=== PATIENT | female | born 1965 | race Caucasian/White ===

== ENCOUNTER 2018-12-28 00:11 | Inpatient (IN) | payer BC, SELFPAY ==
[2018-12-28] VITALS (95 sets, daily range): BP systolic 62–139; BP diastolic 26–86; PULSE 65–264; RESP 11–62; TEMP 36.6–37.5; O2SAT 89–100
[2018-12-28] MEDS: Adenosine 6 MG/2 ML VIAL (00:30)
[2018-12-28] MEDS: dilTIAZem 25 MG/5 ML VIAL 20 MG IVP (00:35)
[2018-12-28] MEDS: dilTIAZem 125 MG in Normal Saline 100 ML IV (00:40)
[2018-12-28 00:58] LABS: Abs Immature Grans 0.01 k/cumm (0.0-0.09); Absolute Basophil Count 0.03 k/cumm (0.0-0.2); Absolute Eosinophil Count 0.24 k/cumm (0.0-0.7); Absolute Lymphocyte Count 4.69 k/cumm (1.2-3.4); Absolute Monocyte Count 0.84 k/cumm (0.11-0.7); Basophils % 0.3; Eosinophils % 2.5; HCT 42.6 % (36.0-46.0); HGB 14.3 g/dL (12.0-15.5); Immature Grans % 0.1; Lymphocytes % 49.3; Mean Corp. HGB Concentration 33.6 g/dL (32.0-36.0); Mean Corpuscular Hemoglobin 30.2 pg (27.0-33.0); Mean Corpuscular Volume 89.9 fL (80-95); Monocytes % 8.8; Platelet Count 250 x1000/uL (130-400); RBC 4.74 m/cumm (4.00-5.20); RBC Distribution Width 13.9 % (11.7-14.6); White Blood Cell Count 9.51 k/cumm (4.4-10.8)
--- NOTE | 2018-12-28 01:04 | ED.GENADUL_ITS ---
Discharge Plan Disposition Patient Disposition: [facility] INPATIENT Condition: Serious Discharge Details Chief Complaint: Chest Pain Clinical Impression: Atrial fibrillation with RVR Admit Date/Time: 12/28/18 04:00 Admit Provider: Jake Nowak Attending Provider: Jake Nowak Primary Care Provider: Dante Kramer ED Provider: Jens Iglesias Discharge Data Discharge Date/Time-TO BE ENTERED AT DEPARTURE: 12/28/18 04:45 Medical Decision Making Patient arrives in a rapid narrow complex tachycardia. Difficult to say whether SVT or A. fib although there appeared to be some irregularity to it. IV was established and a dose of adenosine given. Rate slowed enough to clearly see irregular narrow complex rhythm consistent with atrial fibrillation. Patient then given 20 mg Cardizem bolus and started on a drip at 5 mg/h. She has never had atrial fibrillation before. Laboratory studies sent. Head CT ordered because of complaint of headache and possibility of anticoagulation. CTA of the chest ordered to evaluate for possible PE as she has some complaint of chest pain and shortness of breath. TSH sent as she is on Synthroid for hypothyroidism. Laboratory studies show normal white count and hemoglobin. Chemistries unremarkable. Potassium a little low at 3.3. Carbon dioxide 20.5. Troponin negative. TSH normal. Patient's blood pressure went down with a Cardizem. Heart rate did not really slow. She received almost 2 L of saline with no real response. We were able to increase Cardizem to 7.5 mg/h. However blood pressure dropped again. Heart rate continued to be elevated. We therefore discontinued the Cardizem. Blood pressure came up and she was given Lopressor IV. Heart rate has come down. Blood pressure going down a little so holding off on the second dose. May consider giving digoxin. CT head negative. CTA of chest negative. Patient to be admitted to the ICU for further management of new onset A. fib by hospitalist, Dr. Nowak. Lab Data Lab results reviewed: Yes I reviewed the patient's lab results. ECG Data Attestation: I personally reviewed and interpreted this ECG (s) as follows: Prior ECG tracings: available for review Interpretation: Narrow complex rapid tachycardia with nonspecific ST changes. HPI General Mode of arrival: wheelchair . Date/Time Provider Initiated Documentation: 12/28/18 00:28 . Limitations to Documentation: no limitations . Information obtained by: patient . HPI Narrative: Patient presents to ED with complaint of headache, lightheadedness, palpitations, chest pain. Patient reports that she was sleeping on the couch. She woke up to get ready for bed. She had a headache and eventually developed the other symptoms. She has a diagnosis of trigeminal neuralgia but states headache seems different. She has never had chest pain or palpitations before. She did not pass out. She was concerned and came here for evaluation. She is very anxious. She denies leg pain or leg swelling. Chest pain is described as pressure anteriorly. She does not really feel overly short of breath. She has no new neurologic complaints other than the headache. Related Data Home Medications Medication Instructions Recorded Confirmed alprazolam [Xanax] 0.5 mg PO PRN PRN 12/28/18 12/28/18 gabapentin 600 mg PO BID 12/28/18 12/28/18 levothyroxine [Synthroid] 50 mcg PO DAILY AM 12/28/18 12/28/18 pantoprazole 40 mg PO HS 12/28/18 12/28/18 Allergies Allergy/AdvReac Type Severity Reaction Status Date / Time ciprofloxacin [From Cipro] Allergy Unverified 12/28/18 00:19 clindamycin Allergy Unverified 12/28/18 00:19 Sulfa (Sulfonamide Allergy Unverified 12/28/18 00:19 Antibiotics) iodine AdvReac Unverified 12/28/18 00:19 General Stated Complaint: Chest Pain GALO: 2 Review of Systems Review of Systems 01/29 Review of Systems completed and is negative except as stated above in HPI (Systems reviewed: Const, Eyes, ENT, Resp, CV, GI, , MSK, Skin, Neuro) [facility] Medical History Anxiety (Chronic) GERD (gastroesophageal reflux disease) (Chronic) Hypothyroid (Chronic) Trigeminal neuralgia (Acute) Social History Smoking/Tobacco Use Status: Never Alcohol Intake: never Drug use: Never Substance use type: does not use Do you feel safe at home: Yes Do you feel safe in your relationship?: Yes Exam Narrative Exam Narrative: Vitals: Afebrile with rapid HR at 200. BP okay. Const: Obese female in NAD, anxious. HEENT: NC/AT. Normal facial exam. Eyes: Normal conjunctiva and sclera. Neck: Supple. Trachea midline. Lungs: Normal respiratory effort. Lungs are clear. Cor: Irregular and fast without murmur/gallop. Good radial pulses. GI: Soft. NT/ND. No guarding or rebound. Neuro: A+O x 3. CN II - XII grossly in tact. Normal strength, speech, mentation, sensation. Ext: No C/C/E. No calf tenderness. Skin: Warm and dry without rash. Course Vital Signs Pulse 190 H 12/28/18 00:12 Respiratory Rate 22 12/28/18 00:12 Pulse Oximetry 99 12/28/18 00:12 Temperature Source Skin 12/28/18 00:12 Pulse 190 H 12/28/18 00:35 Pulse 159 H 12/28/18 00:40 Respiratory Rate 14 12/28/18 00:40 Blood Pressure 99/69 L 12/28/18 00:35 Blood Pressure Mean 75 12/28/18 00:31 Pulse Oximetry 100 12/28/18 00:40 Oxygen Delivery Method Room Air 12/28/18 00:12 Oxygen Flow Rate 0 12/28/18 00:12 Lab/Test Results Lab/Test Results: Laboratory Tests Range/Units 12/28/18 12/28/18 00:25 00:46 WBC (4.4-10.8) k/cumm 9.51 RBC (4.00-5.20) m/cumm 4.74 Hgb (12.0-15.5) g/dL 14.3 Hct (36.0-46.0) % 42.6 MCV (80-95) fL 89.9 MCH (27.0-33.0) pg 30.2 MCHC (32.0-36.0) g/dL 33.6 RDW (11.7-14.6) % 13.9 Plt Count (130-400) x1000/uL 250 MPV (8.0-11.0) fL 12.0 H Immature Gran % 0.1 Neutrophils % 39.0 Lymphocytes % 49.3 Monocytes % 8.8 Eosinophils % 2.5 Basophils % 0.3 Absolute Neutrophils (1.2-6.7) k/cumm 3.70 Absolute Lymphocytes (1.2-3.4) k/cumm 4.69 H Absolute Monocytes (0.11-0.7) k/cumm 0.84 H Absolute Eosinophils (0.0-0.7) k/cumm 0.24 Absolute Basophils (0.0-0.2) k/cumm 0.03 PT Cancelled INR Cancelled Critical Care Time Critical Care Time: Yes Total Critical Care Time: 60 Attestation: Upon my evaluation, this patient had a high probability of imminent or life- threatening deterioration, which required my direct attention, intervention, and personal management. I have personally provided minutes of critical care time exclusive of time spent on separately billable procedures. Time includes review of laboratory data, radiology results, discussion with consultants, and monitoring for potential decompensation. Interventions were performed as documented above.
[2018-12-28 01:14] LABS: PTT Activated 24.7 sec (21.0-31.4); Prothrombin Time 10.3 sec (9.3-11.0)
[2018-12-28] MEDS: Normal Saline 250 ML 500 ML IV ×2 (01:15→01:55)
[2018-12-28 01:20] LABS: ALT 26 U/L (14-59); AST 24 U/L (15-37); Albumin 3.6 g/dL (3.4-5.0); Alkaline Phosphatase 66 U/L (46-116); Anion Gap 16.4 mmol/L (3-11); BUN 19 mg/dL (7-18); Bilirubin, Total 0.5 mg/dL (0.2-1.0); CO2 20.6 mmol/L (21.0-32.0); CREATININE 1.17 mg/dL (0.55-1.02); Calcium 9.1 mg/dL (8.5-10.1); Chloride 102 mmol/L (98-107); Estimated GFR 48.57 (mL/min/1.73m2); Glucose 174 mg/dL (70-100); Magnesium 1.9 mg/dL (1.8-2.4); Potassium 3.3 mmol/L (3.5-5.1); Sodium 139 mmol/L (136-145); TSH (W/Ref FT4) 2.44 uIU/mL (0.36-3.74); Total Protein 7.6 g/dL (6.4-8.2); Troponin I < 0.05 ng/mL (0.00-0.06)
[2018-12-28] MEDS: diphenhydrAMINE 50 MG/ML VIAL 25 MG IVP (02:16)
[2018-12-28] MEDS: Normal Saline 1,000 ML 1000 ML IV (02:35)
--- NOTE | 2018-12-28 02:36 | DI.CT_ITS ---
SYMPTOM/DIAGNOSIS: HEADACHE CRANIAL CT (WITHOUT CONTRAST): 12/[address] was performed. The ventricular system is normal in appearance. There is no evidence of an intracranial mass lesion. There is no evidence of a subdural or epidural hematoma. No focal areas of decreased attenuation are seen. CONCLUSION: Normal noncontrast Cranial CT.
--- NOTE | 2018-12-28 02:48 | DI.CT_ITS ---
SYMPTOM/DIAGNOSIS: CHEST PAIN, NEW ONSET A FIB CT ANGIOGRAPHY CHEST: 12/28 CT angiography was performed with multi slice acquisition and multi planar and 3D reconstruction. CT angiography of the chest was performed with bolus infusion of 100 cc Omnipaque 350. Thyroid is markedly enlarged and heterogeneous consistent with multinodular goiter. Images obtained through the upper abdomen show unremarkable appearance of visualized portions of liver, spleen, adrenals, pancreas and kidneys. No mediastinal or hilar adenopathy. Tracheobronchial tree appears intact. No pleural effusion or pleural based mass. Lungs appear clear. Thoracic aorta is of normal diameter and there is no evidence of dissection. Upper abdominal aortic branches appear normal. No evidence of pulmonary embolic disease. CONCLUSION: No evidence of pulmonary embolic disease. Findings consistent with multinodular goiter.
[2018-12-28] MEDS: Omnipaque 350 MG/ML 100 ML BTL IJ (02:49)
--- NOTE | 2018-12-28 02:57 | DI.VRAD_ITS ---
EXAM: CT Angiography Chest With Contrast EXAM DATE/TIME: 12/28/2018 12:46 AM CLINICAL HISTORY: 53 years old, female; Chest pain; Type not specified; Additional info: Chest pain, new onset afib TECHNIQUE: Imaging protocol: Computed tomographic angiography of the chest with intravenous contrast. 3D rendering: MIP reconstructed images were created and reviewed. Radiation optimization: All CT scans at this facility use at least one of these dose optimization techniques: automated exposure control; mA and/or kV adjustment per patient size (includes targeted exams where dose is matched to clinical indication); or iterative reconstruction. Contrast material: [id number]; Contrast volume: 84 ml; Contrast route: IV LAC 18G; COMPARISON: No relevant prior studies available. FINDINGS: Pulmonary arteries: No pulmonary emboli. Aorta: No aortic aneurysm. No aortic dissection. Lungs: Unremarkable. No consolidation. No masses. Pleural space: Unremarkable. No pneumothorax. No pleural effusion. Heart: Unremarkable. No cardiomegaly. No pericardial effusion. Lymph nodes: Unremarkable. No enlarged lymph nodes. Bones/joints: Unremarkable. No acute fracture. Soft tissues: Multinodular thyroid gland with superior mediastinal extension which Prior cholecystectomy A small hiatal hernia is detected. IMPRESSION: No pulmonary emboli Dictated and Authenticated by: Vitor Sorto MD. Ordering:NISREEN Colindres MD
--- NOTE | 2018-12-28 02:57 | DI.VRAD_ITS ---
EXAM: CT Head Without Contrast EXAM DATE/TIME: 12/28/2018 1:04 AM CLINICAL HISTORY: 53 years old, female; Pain; Headache not specified; Additional info: Chest pain, new onset afib TECHNIQUE: Imaging protocol: Computed tomography of the head without contrast. Radiation optimization: All CT scans at this facility use at least one of these dose optimization techniques: automated exposure control; mA and/or kV adjustment per patient size (includes targeted exams where dose is matched to clinical indication); or iterative reconstruction. COMPARISON: No relevant prior studies available. FINDINGS: Brain: Mild volume loss.No hemorrhage. Unremarkable white matter. No mass effect. Ventricles: Normal. No ventriculomegaly. Bones/joints: Unremarkable. No acute fracture. Sinuses: Visualized sinuses are unremarkable. No fluid levels. Mastoid air cells: Visualized mastoid air cells are well aerated. Soft tissues: Unremarkable. IMPRESSION: No acute intracranial abnormality. Dictated and Authenticated by: Vitor Sorto MD. Ordering:NISREEN Colindres MD
--- NOTE | 2018-12-28 03:58 | W.PM.HP.N ---
Date of service: 12/28/18 Time of Service: 03:58 History of Present Illness Narrative: see my handwritten H&P for details. [facility] Medical History Anxiety (Chronic) GERD (gastroesophageal reflux disease) (Chronic) Hypothyroid (Chronic) Trigeminal neuralgia (Acute) Social History Smoking/Tobacco Use Status: Never Alcohol Intake: never Drug use: Never Substance use type: does not use Do you feel safe at home: Yes Do you feel safe in your relationship?: Yes Meds Home Medications Medication Instructions Recorded Confirmed Type alprazolam [Xanax] 0.5 mg PO PRN PRN 12/28/18 12/28/18 History gabapentin 600 mg PO BID 12/28/18 12/28/18 History levothyroxine [Synthroid] 50 mcg PO DAILY AM 12/28/18 12/28/18 History pantoprazole 40 mg PO HS 12/28/18 12/28/18 History Allergies Allergy/AdvReac Type Severity Reaction Status Date / Time ciprofloxacin [From Cipro] Allergy Unverified 12/28/18 00:19 clindamycin Allergy Unverified 12/28/18 00:19 Sulfa (Sulfonamide Allergy Unverified 12/28/18 00:19 Antibiotics) iodine AdvReac Unverified 12/28/18 00:19 Exam Narrative Exam Narrative: see my handwritten H&P for details Results Labs : 12/28/18 00:25 12/28/18 00:25 Laboratory Results - last 24 hr 12/28/18 12/28/18 12/28/18 00:25 00:25 00:25 WBC 9.51 RBC 4.74 Hgb 14.3 Hct 42.6 MCV 89.9 MCH 30.2 MCHC 33.6 RDW 13.9 Plt Count 250 MPV 12.0 H Immature Gran % 0.1 Neutrophils % 39.0 Lymphocytes % 49.3 Monocytes % 8.8 Eosinophils % 2.5 Basophils % 0.3 Absolute Neutrophils 3.70 Absolute Lymphocytes 4.69 H Absolute Monocytes 0.84 H Absolute Eosinophils 0.24 Absolute Basophils 0.03 PT 10.3 INR 1.0 APTT 24.7 Sodium 139 Potassium 3.3 L Chloride 102 Carbon Dioxide 20.6 L Anion Gap 16.4 H BUN 19 H Creatinine 1.17 H Estimated GFR/1.73 m2 48.57 Glucose 174 H Calcium 9.1 Magnesium 1.9 Total Bilirubin 0.5 AST 24 ALT 26 Alkaline Phosphatase 66 Troponin I < 0.05 Total Protein 7.6 Albumin 3.6 TSH 12/28/18 12/28/18 00:25 00:46 WBC RBC Hgb Hct MCV MCH MCHC RDW Plt Count MPV Immature Gran % Neutrophils % Lymphocytes % Monocytes % Eosinophils % Basophils % Absolute Neutrophils Absolute Lymphocytes Absolute Monocytes Absolute Eosinophils Absolute Basophils PT Cancelled INR Cancelled APTT Sodium Potassium Chloride Carbon Dioxide Anion Gap BUN Creatinine Estimated GFR/1.73 m2 Glucose Calcium Magnesium Total Bilirubin AST ALT Alkaline Phosphatase Troponin I Total Protein Albumin TSH 2.44 Last Vital Signs Pulse 79 12/28/18 01:51 Resp 20 12/28/18 01:51 BP 113/74 12/28/18 01:51 Pulse Ox 97 12/28/18 01:51
[2018-12-28] MEDS: Digoxin 0.5 MG/2 ML AMP 0.25 MG IVP (05:14)
[2018-12-28] MEDS: Metoprolol 5 MG/5 ML VIAL (05:45)
--- NOTE | 2018-12-28 07:37 | NUR.NOTE ---
12/28/18 0210-see vital sign flow sheet-cardizem drip IV @ 5ml/hr continued infusing as ordered. Pt escorted to CT on monitor by director underwriter sales. 12/28/18 022-see vital sign flow sheet-cardizem drip increased to 7ml/hr without incident. 12/28/18 023-see vital sign flow sheet-cardizem drip stopped, EDMD notified and NS 1 liter began infusing as ordered. No new c/o voiced or noted. 12/28/18 030-see vital sign flow sheet-cardizem drip restarted at 5ml/hr as ordered. pt returned to ED room from CT, no new c/c voiced. 12/28/18 032-see vital sign flow sheet-EDMD notified of hypotension with orders to stop cardizem drip, which is stopped at this time, and instructed to admin lopressor 5mg x3 doses if SBP >120. first dose lopressor admin at this time as ordered. 12/28/18 0340-see vital sign flow sheet-lopressor dose #2 held due to hypotension, EDMD notified with instructions to monitor and admin per SBP 12/28/18 0350-see vital sign flow sheet-continue to hold 2nd lopressor dose EDMD advised with no new orders. 12/28/18 0405-Report given to Kamryn, CARD CUTTER, continue to hold 2nd lopressor dose due to hypotension-see vital sign flow sheet- 12/28/18 0440-see vital sign flow sheet-Dr Nowak is bedside and aware of BP of 62/47 and instructed director underwriter sales to begin infusing 1 liter NS bolus, transport pt to ICU ian and heart rate will be addressed in the ICU on arrival. 1 liter NS bolus began infusing wide open, CERTIFIED ATHLETIC TRAINER notified by director underwriter sales and pt transported on monitor by RN. pt with no new c/c voiced at this time. Nursing Note:
[2018-12-28] MEDS: dilTIAZem 60 MG TAB PO ×3 (08:30→19:42)
[2018-12-28] MEDS: Levothyroxine 50 MCG TAB PO (09:16)
--- NOTE | 2018-12-28 09:28 | NUR.NOTE ---
I spoke with the patient regarding the code status and she wants to be a full code and have everything done for her. She just noted that she does not want to be on a vent for a long time. I talked with her about speaking with the doctor about her code status but she states that she is comfortable with her decision and she wants to speak with care managers on advanced directives to specify vent length. Chad GRACIAN primary RN updated on this info. Nursing Note:
--- NOTE | 2018-12-28 09:42 | INITIAL_ITS ---
- If Service Date Differs Date of service: 12/28/18 Time of Service: 09:42 Care Management Initial Assess REASON FOR HOSPITALIZATION:: Atrial fibrillation PAST MEDICAL HISTORY/PAST SURGICAL HISTORY:: Medical History: Anxiety (Chronic). GERD (gastroesophageal reflux disease) (Chronic). Hypothyroid (Chronic). Trigeminal neuralgia (Acute) PREVIOUS FUNCTIONAL STATUS/SOCIAL/FAMILY SUPPORTS:: Trinity lives in a basement apartment in a single family home with friends of hers. She moved here from [place] about 2 years ago when she got layed off from her job. 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 Trinity has 2 sisters who live in [place]; her mother lives in [place].Trinity is independent with ADLs and all care and activities. CURRENT FUNCTIONAL STATUS:: Trinity was sitting up in bed when CM came to see her. She was pleasant and cooperatine and readily engaged in conversation. Trinity had a lot of questions about insurance coverage, payment options, advanced directives and available resources. CM reviewed the Patient Financial Assistance program with her and provided her with copies of the [facility] Advanced Directives forms, the [facility] Patient Financial Assistance packet and the [facility] portal brochure. ADVANCE DIRECTIVES:: Trinity does not currently have advanced directives but was given a copy of the [facility] forms by CM at her request. Has patient been provided with information about the portal?: Yes Did the patient sign up for the portal?: No CODE STATUS:: Full Code INSURANCE COVERAGE / FINANCIAL ISSUES:: BC BS CURRENT HOME/COMMUNITY SERVICES/EQUIPMENT:: none currently PRIMARY CARE PHYSICIAN:: Dante Kramer MD, [place] POTENTIAL DISCHARGE NEEDS:: Follow up with Cardiology, PCP and discharge plan of care PATIENT/FAMILY EDUCATION NEEDS:: Discharge plan, limitations, folllow up care, Ask Me Three. TRANSPORTATION:: via private vehicle with family when ready PLAN:: Trinity is undergoing testing related to new onset afib. She willl be discharged home with no services. She will follow up with cardiology and her PCP. Cm will continue to provide support to patient, family and discharge planning needs.
[2018-12-28 09:45] LABS: HCT 44.8 % (36.0-46.0); HGB 14.8 g/dL (12.0-15.5); Mean Corpuscular Hemoglobin 29.8 pg (27.0-33.0); Mean Corpuscular Volume 90.3 fL (80-95); Mean Platelet Volume 11.4 fL (8.0-11.0); Platelet Count 254 x1000/uL (130-400); RBC 4.96 m/cumm (4.00-5.20); RBC Distribution Width 14.3 % (11.7-14.6); White Blood Cell Count 6.88 k/cumm (4.4-10.8)
[2018-12-28] MEDS: Aspirin 325 MG TAB PO (09:55)
[2018-12-28] MEDS: Gabapentin 300 MG CAP PO ×2 (10:04→19:42)
[2018-12-28] MEDS: Normal Saline 1,000 ML 100 ML IV (10:10)
[2018-12-28 10:24] LABS: Anion Gap 11.7 mmol/L (3-11); BUN 13 mg/dL (7-18); CO2 23.3 mmol/L (21.0-32.0); CREATININE 0.71 mg/dL (0.55-1.02); Calcium 8.2 mg/dL (8.5-10.1); Chloride 110 mmol/L (98-107); Glucose 81 mg/dL (70-100); Potassium 4.3 mmol/L (3.5-5.1); Sodium 145 mmol/L (136-145)
[2018-12-28] MEDS: Acyclovir 400 MG TAB PO ×3 (10:31→19:42)
--- NOTE | 2018-12-28 10:45 | W.PM.PROGNOT ---
Date of Service Date of service: 12/28/18 Time of Service: 12:34 Subjective Subjective Interval history since last seen: patient admitted with wisam jolly with RVR. She converted to NSR and has been weaned of diltiazem drip. She is on oral dilt. CHADSVASC is 1. She will be placed on daily aspirin. She had hypothyroidism on synthroid, with normal TSH, free t4 just above normal which is likely insignificant and free t3 pending. She has an echo pending as well. On discharged a 30 day even monitor could be considered. Objective Objective Clinical Data: Abnormal lab results 12/28/18 12/28/18 12/28/18 Range/Units 00:25 00:25 09:32 MPV 12.0 H (8.0-11.0) fL Absolute Lymphocytes 4.69 H (1.2-3.4) k/cumm Absolute Monocytes 0.84 H (0.11-0.7) k/cumm Potassium 3.3 L (3.5-5.1) mmol/L Chloride 110 H (98-107) mmol/L Carbon Dioxide 20.6 L (21.0-32.0) mmol/L Anion Gap 16.4 H 11.7 H (3-11) mmol/L BUN 19 H (7-18) mg/dL Creatinine 1.17 H (0.55-1.02) mg/dL Glucose 174 H (70-100) mg/dL Calcium 8.2 L (8.5-10.1) mg/dL Troponin I 0.30 H* (0.00-0.06) ng/mL Free T4 1.50 H (0.76-1.46) ng/dL 12/28/18 Range/Units 09:32 MPV 11.4 H (8.0-11.0) fL Absolute Lymphocytes (1.2-3.4) k/cumm Absolute Monocytes (0.11-0.7) k/cumm Potassium (3.5-5.1) mmol/L Chloride (98-107) mmol/L Carbon Dioxide (21.0-32.0) mmol/L Anion Gap (3-11) mmol/L BUN (7-18) mg/dL Creatinine (0.55-1.02) mg/dL Glucose (70-100) mg/dL Calcium (8.5-10.1) mg/dL Troponin I (0.00-0.06) ng/mL Free T4 (0.76-1.46) ng/dL Vital Signs Temperature 36.9 C 12/28/18 08:40 Temperature Source Temporal Artery Scan 12/28/18 08:40 Pulse 75 12/28/18 09:52 Pulse 78 12/28/18 09:52 Respiratory Rate 20 12/28/18 09:52 Respiratory Effort Non-Labored 12/28/18 08:40 Respiratory Depth Normal 12/28/18 08:40 Respiratory Pattern Normal 12/28/18 08:40 Blood Pressure 109/62 12/28/18 09:52 Blood Pressure Mean 71 12/28/18 09:52 Blood Pressure Position Supine 12/28/18 08:40 Pulse Oximetry 98 12/28/18 08:40 Oxygen Delivery Method Room Air 12/28/18 08:40 Oxygen Flow Rate 0 12/28/18 08:40 Pain Level 2 12/28/18 08:40 Comment 12/28/18 07:35 Intake & Output 12/27/18 12/27/18 12/28/18 11:59 23:59 11:59 Intake Total 1808.75 / 1808.75 Output Total 350 / 350 Balance 1458.75 / 1458.75 Weight 113.7 kg Intake: IV 1808.75 / 1808.75 Output: Urine 350 / 350 Other: Urine Color Yellow Straw Urine Appearance Clear Urine Odor Strong Comment Voided 350cc clear yellow urine. Voiding Methods Bedside Commode Laboratory Results WBC 6.88 k/cumm (4.4-10.8) 12/28/18 09:32 RBC 4.96 m/cumm (4.00-5.20) 12/28/18 09:32 Hgb 14.8 g/dL (12.0-15.5) 12/28/18 09:32 Hct 44.8 % (36.0-46.0) 12/28/18 09:32 MCV 90.3 fL (80-95) 12/28/18 09:32 MCH 29.8 pg (27.0-33.0) 12/28/18 09:32 MCHC 33.0 g/dL (32.0-36.0) 12/28/18 09:32 RDW 14.3 % (11.7-14.6) 12/28/18 09:32 Plt Count 254 x1000/uL (130-400) 12/28/18 09:32 MPV 11.4 fL (8.0-11.0) H 12/28/18 09:32 Immature Gran % 0.1 12/28/18 00:25 Neutrophils % 39.0 12/28/18 00:25 Lymphocytes % 49.3 12/28/18 00:25 Monocytes % 8.8 12/28/18 00:25 Eosinophils % 2.5 12/28/18 00:25 Basophils % 0.3 12/28/18 00:25 Absolute Neutrophils 3.70 k/cumm (1.2-6.7) 12/28/18 00:25 Absolute Lymphocytes 4.69 k/cumm (1.2-3.4) H 12/28/18 00:25 Absolute Monocytes 0.84 k/cumm (0.11-0.7) H 12/28/18 00:25 Absolute Eosinophils 0.24 k/cumm (0.0-0.7) 12/28/18 00:25 Absolute Basophils 0.03 k/cumm (0.0-0.2) 12/28/18 00:25 PT Cancelled 12/28/18 00:46 INR Cancelled 12/28/18 00:46 APTT 24.7 sec (21.0-31.4) 12/28/18 00:25 Sodium 145 mmol/L (136-145) 12/28/18 09:32 Potassium 4.3 mmol/L (3.5-5.1) D 12/28/18 09:32 Chloride 110 mmol/L (98-107) H 12/28/18 09:32 Carbon Dioxide 23.3 mmol/L (21.0-32.0) 12/28/18 09:32 Anion Gap 11.7 mmol/L (3-11) H 12/28/18 09:32 BUN 13 mg/dL (7-18) D 12/28/18 09:32 Creatinine 0.71 mg/dL (0.55-1.02) 12/28/18 09:32 Estimated GFR/1.73 m2 >= 60.00 (mL/min/1.73m2) 12/28/18 09:32 Glucose 81 mg/dL (70-100) D 12/28/18 09:32 Calcium 8.2 mg/dL (8.5-10.1) L 12/28/18 09:32 Magnesium 1.9 mg/dL (1.8-2.4) 12/28/18 00:25 Total Bilirubin 0.5 mg/dL (0.2-1.0) 12/28/18 00:25 AST 24 U/L (15-37) 12/28/18 00:25 ALT 26 U/L (14-59) 12/28/18 00:25 Alkaline Phosphatase 66 U/L (46-116) 12/28/18 00:25 Troponin I 0.30 ng/mL (0.00-0.06) H* 12/28/18 09:32 Total Protein 7.6 g/dL (6.4-8.2) 12/28/18 00:25 Albumin 3.6 g/dL (3.4-5.0) 12/28/18 00:25 TSH 2.44 uIU/mL (0.36-3.74) 12/28/18 00:25 Free T4 1.50 ng/dL (0.76-1.46) H 12/28/18 09:32 Free T4 Cancelled 12/28/18 09:32
--- NOTE | 2018-12-28 12:20 | MERGE_ITS ---
*[facility]* *[facility]* [address] [place] [address] Date of study: 12/28/2018 Transthoracic Echocardiography M-mode, complete 2D, complete spectral Doppler, and color Doppler *STUDY CONCLUSIONS* Summary: 1. Left ventricle: The cavity size was normal. Wall thickness was normal. Systolic function was normal. The estimated ejection fraction was 55-60%. Wall motion was normal; there were no regional wall motion abnormalities. 2. Mitral valve: There was mild regurgitation. 3. Left atrium: The atrium was mildly dilated. 4. Right ventricle: The cavity size was mildly dilated. Wall thickness was normal. Systolic function was normal. 5. Right atrium: The atrium was mildly dilated. 6. Tricuspid valve: There was mild-moderate regurgitation. 7. Pulmonary arteries: Pulmonary systolic pressure was increased, in the range of 35mm Hg to 40mm Hg. *PATIENT PRESENTATION* Height: 162.6cm (64in ) S/D Pressure: 109 / 62 Weight: 113.4kg (249.5lb ) BSA: 2.32m^2 Test start time: 12:35 PM. Test stop time: 01:35 PM. PERFORMING Unknown PERFORMING Nv CONSULTING Wu Nowak ORDERING Wu Nowak REFERRING Wu Nowak FIXER BOARDING ROOM RT Suad (R)(CHANTE), JUANITA *PROCEDURE DATA* Procedure information: The patient was identified by two identifiers. This study was interpreted by [facility]. Pertinent images and digital data are archived for permanent storage and are available for subsequent review. No prior study was available for comparison. Study status: Routine. Transthoracic echocardiography. M-mode, complete 2D, complete spectral Doppler, and color Doppler. A Transthoracic Echocardiogram was performed. Scanning was performed from the parasternal, apical, subcostal, and suprasternal notch acoustic windows. Images were obtained using an [id number] cardiac ultrasound machine. Image quality was adequate. Study completion: The patient tolerated the procedure well. There were no complications. History: PMH: Afib. Calculate LV function. *CARDIAC ANATOMY* Left ventricle: The cavity size was normal. Wall thickness was normal. Systolic function was normal. The estimated ejection fraction was 55-60%. Wall motion was normal; there were no regional wall motion abnormalities. Diastolic parameters were not diagnostic. Aortic valve: Probably trileaflet; normal thickness leaflets. Mobility was not restricted. Doppler: Transvalvular velocity was within the normal range. There was no stenosis. There was no significant regurgitation. VTI ratio of LVOT to aortic valve: 0.89. Valve area (VTI): 2.9cm^2. Indexed valve area (VTI): 1.2cm^2/m^2. Peak velocity ratio of LVOT to aortic valve: 0.86. Valve area (Vmax): 2.8cm^2. Indexed valve area (Vmax): 1.2cm^2/m^2. Mean velocity ratio of LVOT to aortic valve: 0.87. Valve area (Vmean): 2.8cm^2. Indexed valve area (Vmean): 1.2cm^2/m^2. Mean gradient (S): 6mm Hg. Peak gradient (S): 12.4mm Hg. Aorta: Aortic root: The aortic root was normal in size. Ascending aorta: The ascending aorta was normal in size. Mitral valve: Mildly thickened leaflets. Mobility was not restricted. Doppler: Transvalvular velocity was within the normal range. There was no evidence for stenosis. There was mild regurgitation. Valve area by pressure half-time: 4.7cm^2. Indexed valve area by pressure half-time: 2cm^2/m^2. Peak gradient (D): 4.7mm Hg. Left atrium: The atrium was mildly dilated. Right ventricle: The cavity size was mildly dilated. Wall thickness was normal. Systolic function was normal. Pulmonic valve: The pulmonary valve appears to be grossly normal. Doppler: Transvalvular velocity was within the normal range. There was no evidence for stenosis. There was no significant regurgitation. Tricuspid valve: Structurally normal valve. Doppler: Transvalvular velocity was within the normal range. There was no evidence for stenosis. There was mild-moderate regurgitation. Pulmonary artery: Pulmonary systolic pressure was increased, in the range of 35mm Hg to 40mm Hg. Right atrium: The atrium was mildly dilated. Pericardium: There was no pericardial effusion. Systemic veins: Inferior vena cava: Well visualized. The vessel was patent and normal in size. The respirophasic diameter changes were in the normal range (greater than or equal to 50%). Baseline ECG: Normal sinus rhythm. Measurements Left ventricle Value Reference LV ID, ED, PLAX 5.2 cm 3.5 - 6.0 LV ID, ES, PLAX 3.5 cm 2.1 - 4.0 LV PW thickness, ED, PLAX 1.0 cm LV end-diastolic volume, 1-p A2C 85 ml LV ejection fraction, 1-p A2C 57 % LV end-diastolic volume, 1-p A4C 97 ml LV ejection fraction, 1-p A4C 58 % LV e', lateral 0.183 m/sec LV E/e', lateral 6 LV e', medial 0.121 m/sec LV E/e', medial 9 LV e', average 0.152 m/sec LV E/e', average 7 Ventricular septum Value Reference IVS thickness, ED, PLAX 0.8 cm LVOT Value Reference LVOT ID, A-P 2.0 cm LVOT area 3.3 cm^2 LVOT peak velocity, S 1.51 m/sec LVOT mean velocity, S 0.99 m/sec LVOT VTI, S 27.6 cm LVOT peak gradient, S 9.1 mm Hg LVOT mean gradient, S 4.6 mm Hg Stroke volume (SV), LVOT DP 90 ml Stroke index (SV/bsa), LVOT DP 39 ml/m^2 Aortic valve Value Reference Aortic valve peak velocity, S 1.8 m/sec Aortic valve mean velocity, S 1.1 m/sec Aortic valve VTI, S 31.0 cm Aortic mean gradient, S 6 mm Hg Aortic peak gradient, S 12.4 mm Hg VTI ratio, LVOT/AV 0.89 Aortic valve area, VTI 2.9 cm^2 Velocity ratio, peak, LVOT/AV 0.86 Aortic valve area, peak velocity 2.8 cm^2 Velocity ratio, mean, LVOT/AV 0.87 Aortic valve area, mean velocity 2.8 cm^2 Aortic valve area/bsa, mean velocity 1.2 cm^2/m^2 Aorta Value Reference Aortic root ID, ED 3.0 cm Ascending aorta ID, A-P, S 2.9 cm Left atrium Value Reference LA ID, A-P, ES 4.4 cm LA ID/bsa, A-P 1.9 cm/m^2 <=2.2 LA volume/bsa, ES, 1-p A4C 43 ml/m^2 LA volume, ES, 2-p 73 ml LA volume/bsa, ES, 2-p 31 ml/m^2 LA/aortic root ratio 1.45 Mitral valve Value Reference Mitral E-wave peak velocity 1.08 m/sec Mitral A-wave peak velocity 0.54 m/sec Mitral deceleration time 161 ms 150 - 230 Mitral pressure half-time 47 ms Mitral peak gradient, D 4.7 mm Hg Mitral E/A ratio, peak 2.02 Mitral valve area, PHT, DP 4.7 cm^2 Tricuspid valve Value Reference Tricuspid regurg peak velocity 3.1 m/sec Tricuspid peak RV-RA gradient 37.3 mm Hg Right atrium Value Reference RA area, ES, A4C (H) 21 cm^2 8.3 - 19.5 Legend: (L) and (H) sho values outside specified reference range. I have personally reviewed the images and have reviewed and edited the reported findings. Electronically signed by Gen Chi 12/28/2018 16:36
--- NOTE | 2018-12-28 12:29 | PHARADMIT ---
Admission Pharmacy Clinical Review AFIB Code Status Full Code Current Weight 113.7 kg Renally Cleared and Narrow Therapeutic Index Meds CrCl ~ 114 mg/dL based on ABW QTc Value / Action Taken QTc 410 BP Control, Fever BP 109/62, afebrile Electrolytes reviewed Na 145, K+ 4.3, Mg 1.9 DVT Prophylaxis Opiate Usage / Scheduled Bowel Regimen Ordered Plt/SCr for Heparin / Enoxaparin Plt 254, WBC 6.88 INR for Warfarin 1.0 H/H stable, WBC/Bands H/H 14.8/44.8 Antibiotic appropriateness Cultures and Sensitivities Surgical ABX d/c within 24 hr DM control / Insulin Dosing Heart Failure (Check EF%) (SEBASTIÁN's, B-Block, Diuretics) IV to PO Switch Dilt dripped stopped, switched to oral Home Meds Reviewed Yes Home Meds Not Ordered All ordered but eric is 1/2 of reported home med dose Comments Converted to NSR Troponin 0.3, Echo pending
[2018-12-28 14:37] LABS: Troponin I 0.24 ng/mL (0.00-0.06)
--- NOTE | 2018-12-28 15:15 | CHAPLAIN ---
Trinity was resting in bed when I visited. I followed Sonia from Dietary, a blood draw from lab staff and Trinity walking around the halls a bit with her nurse, so she was tired. Trinity told me about coming in last night with a fast heart rate and not knowing what was causing that. She lives in an apartment in the home of a friend and the friend's parents. The friend's father is a hospice patient. Trinity's family is in [place] (mom) and [place] (sisters). Her dad a few years ago and Trinity was able to help care for him before he . 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 She moved to [place] two years ago to live with these friends (also missionaries in [place]) while looking for other work.. The fast heart rate she experienced last night was scary for her,s she said, but she is feeling better today. She did not get much sleep last night and is hoping to be able to rest this evening and tonight without having more tests. Trinity attends [facility] [employer] but is not a member. She expects her friend and her friend's mom will be in to visit. I offered a prayer with Trinity and will visit again.
[2018-12-28 17:10] LABS: T3,Free 3.6 pg/ml (2.8-5.3)
[2018-12-28] MEDS: Pantoprazole 40 MG TABCR PO (23:04)
[2018-12-29] VITALS (10 sets, daily range): BP systolic 95–142; BP diastolic 46–91; PULSE 57–98; RESP 14–20; TEMP 36.6; O2SAT 97–99
[2018-12-29 07:12] LABS: HCT 38.8 % (36.0-46.0); HGB 12.7 g/dL (12.0-15.5); Mean Corp. HGB Concentration 32.7 g/dL (32.0-36.0); Mean Corpuscular Volume 91.5 fL (80-95); Mean Platelet Volume 11.4 fL (8.0-11.0); Platelet Count 219 x1000/uL (130-400); RBC 4.24 m/cumm (4.00-5.20); RBC Distribution Width 14.3 % (11.7-14.6); White Blood Cell Count 5.81 k/cumm (4.4-10.8)
[2018-12-29 07:52] LABS: Anion Gap 8.4 mmol/L (3-11); BUN 14 mg/dL (7-18); CO2 25.6 mmol/L (21.0-32.0); CREATININE 0.65 mg/dL (0.55-1.02); Calcium 8.4 mg/dL (8.5-10.1); Chloride 108 mmol/L (98-107); Glucose 91 mg/dL (70-100); Potassium 3.6 mmol/L (3.5-5.1); Sodium 142 mmol/L (136-145)
[2018-12-29] MEDS: dilTIAZem 60 MG TAB PO ×2 (09:00→13:59)
[2018-12-29] MEDS: Gabapentin 300 MG CAP PO (09:00)
[2018-12-29] MEDS: Aspirin 81 MG CHEW PO (09:00)
[2018-12-29] MEDS: Acyclovir 400 MG TAB PO ×2 (09:01→13:59)
[2018-12-29] MEDS: Potassium Chloride 20 MEQ TABCR 40 MEQ PO (10:30)
--- NOTE | 2018-12-29 11:26 | W.PM.DS.N ---
Date of service: 12/29/18 Time of Service: 11:26 DS: Diagnosis Discharge Diagnosis (1) Atrial fibrillation: Status: Chronic (2) Obesity: Status: Chronic Discharge Plan Disposition Patient Disposition: HOME Condition: Stable Discharge Details Chief Complaint: Chest Pain Clinical Impression: Atrial fibrillation with RVR Reason For Visit: AFIB Admit Date/Time: 12/28/18 04:00 Admit Provider: Jake Nowak Attending Provider: Jake Nowak Primary Care Provider: Dante Kramer ED Provider: Jens Iglesias [facility] Hospital Course: Chief Complaint: HPI: 53 year old woman with a history of Obesity and hypothyroidism, admitted from [facility] Emergency Department on 12/28 with a new diagnosis of Atrial Fibrillation with RVR. Ms. Damon has a history of Obesity, Hypothyroidism, GERD with verbal report of Padilla's Esophagus, Trigeminal Neuralgia, and anxiety. She presented to the ED with initial complaints of palpitations, chest discomfort, and lightheadedness. Evaluation was significant for evidence of a rapid and irregular rate, with diagnosis of new Afib at time of admission. She was mildly hypokalemic at presentation, with a mildly low bicarb and an anion gap, all of which quickly normalized. She also had a normal WBC, Normal CTA of the chest (Findings of a Multinodular Goiter), and normal TSH. Following admission she quickly converted to sinus rhythm while receiving Cardizem, and has remained in sinus rhythm since. Her ECHO was essentially normal with the exception of some degree of PHTN (PAP 35-40mm Hg), and she was initiated on oral Diltiazem. Given her [id number] score of 1 (Female) she was initiated on daily ASA as well. Will plan on Holter monitor as outpatient, and continuation of short acting oral cardizem until ultimate dose is finalized and she can be changed to once daily dosing. Of note, Ms. Damon's Troponin was minimally and equivocally elevated following admission (0.3 --> 0.24), and downtrended with treatment of her Afib and conversion to sinus rhythm. This very likely represents demand ischemia, but cannot rule out underlying Coronary Disease. She is asymptomatic currently - will attempt to arrange outpatient stress testing, and given her chronic knee pain will do so with a pharmacological nuclear stress test. Prior to discharge a lengthy discussion was held regarding healthy attempts at weight loss - appears that the patient has been mainly on a 'keto' diet for a month, and routinely fasts for 16 hours a day. Also with noted elevation in Pulmonary Pressures and obesity - may benefit from a sleep study as an outpatient to rule out underlying SANA. Will also recommend follow-up with PCP within 1 week of discharge. Home Meds and New Rx's Prescriptions: New acyclovir 400 mg Tablet 400 mg PO TID Qty: 0 RF: 0 aspirin 81 mg Tablet,Chewable 81 mg PO DAILY Qty: 0 RF: 0 diltiazem HCl [Cardizem] 60 mg Tablet 60 mg PO TID Qty: 90 RF: 0 Continued alprazolam [Xanax] 0.5 mg Tablet 0.5 mg PO PRN PRNRF: 0 levothyroxine [Synthroid] 50 mcg Tablet 50 mcg PO DAILY AM RF: 0 pantoprazole 40 mg Tablet,Delayed Release (Dr/Ec) 40 mg PO HS RF: 0 gabapentin 300 mg Capsule 600 mg PO BID RF: 0 Discharge Instructions Activity:: No strenuous activity Equipment/Supplies:: No Equipment Needed Diet:: Low Sodium Discharge Orders Discharge Orders: Discharge Order (Routine); Ordered 12/29/18 Ordered By: Christian Griffin Other Ambulatory Orders: Cardiac Event Recorder (Outpt) (ONCE) Location: None Selected Ordered By: Christian Griffin Nuclear Medicine Stress Test (Outpt) (ONCE) Timeframe: 20190112 Location: None Selected Ordered By: Christian Griffin DS: Summary Status at Discharge Functional status at discharge: independent ambulation Overall status at discharge: patient is back to baseline Mental Status: mental status grossly normal Speech and Movement: speech and movement normal Mood: congruent mood Affect: normal affect Exam Psych Mental Status: mental status grossly normal Speech and Movement: speech and movement normal Mood: congruent mood Affect: normal affect DS: Data Vitals/I&O Vitals and I&O: Vital Signs Temperature 36.6 C 12/29/18 09:45 Temperature Source Temporal Artery Scan 12/29/18 09:45 Pulse 98 H 12/29/18 09:45 Pulse 57 L 12/29/18 06:01 Respiratory Rate 16 12/29/18 09:45 Respiratory Effort 12/29/18 09:45 Respiratory Depth Normal 12/29/18 09:45 Respiratory Pattern Normal 12/29/18 03:00 Blood Pressure 142/91 H 12/29/18 09:45 Blood Pressure Mean 108 12/29/18 09:45 Blood Pressure Position Sitting 12/29/18 09:45 Pulse Oximetry 98 12/29/18 09:45 Oxygen Delivery Method Room Air 12/29/18 09:45 Oxygen Flow Rate 0 12/29/18 09:45 Pain Level 0 12/29/18 09:45 Comment 12/28/18 07:35 Intake & Output 12/28/18 12/28/18 12/29/18 11:59 23:59 11:59 Intake Total 1808.75 / 2698.75 890 / 2698.75 480 / 480 Output Total 350 / 2425 2075 / 2425 Balance 1458.75 / 273.75 -1185 / 273.75 480 / 480 Weight 113.7 kg 114.5 kg Intake: IV 1808.75 / 1808.75 Oral 890 / 890 480 / 480 Output: Urine 350 / 2425 2075 / 2425 Other: Urine Color Yellow Yellow Straw Urine Appearance Clear Clear Urine Odor Strong Normal Comment Voided 350cc clear yellow urine. Herpes sores along vaginal tract, currently being treated with Acyclovir. Stool Size Small Stool Characteristics Soft Formed Voiding Methods Bedside Commode Bedside Commode Data Completed and Pending Completed studies during hospitalization [Text1]: Exam(s) a US:US echocardiogram Date of study: 12/28/2018 Transthoracic Echocardiography M-mode, complete 2D, complete spectral Doppler, and color Doppler *STUDY CONCLUSIONS* Summary: 1. Left ventricle: The cavity size was normal. Wall thickness was normal. Systolic function was normal. The estimated ejection fraction was 55-60%. Wall motion was normal; there were no regional wall motion abnormalities. 2. Mitral valve: There was mild regurgitation. 3. Left atrium: The atrium was mildly dilated. 4. Right ventricle: The cavity size was mildly dilated. Wall thickness was normal. Systolic function was normal. 5. Right atrium: The atrium was mildly dilated. 6. Tricuspid valve: There was mild-moderate regurgitation. 7. Pulmonary arteries: Pulmonary systolic pressure was increased, in the range of 35mm Hg to 40mm Hg. Exam(s) 12/28/[address]:CT chest PE CTA SYMPTOM/DIAGNOSIS: CHEST PAIN, NEW ONSET A FIB CT ANGIOGRAPHY CHEST: 12/28 CT angiography was performed with multi slice acquisition and multi planar and 3D reconstruction. CT angiography of the chest was performed with bolus infusion of 100 cc Omnipaque 350. Thyroid is markedly enlarged and heterogeneous consistent with multinodular goiter. Images obtained through the upper abdomen show unremarkable appearance of visualized portions of liver, spleen, adrenals, pancreas and kidneys. No mediastinal or hilar adenopathy. Tracheobronchial tree appears intact. No pleural effusion or pleural based mass. Lungs appear clear. Thoracic aorta is of normal diameter and there is no evidence of dissection. Upper abdominal aortic branches appear normal. No evidence of pulmonary embolic disease. CONCLUSION: No evidence of pulmonary embolic disease. Findings consistent with multinodular goiter. Exam(s) 12/28/[address]:CT head wo SYMPTOM/DIAGNOSIS: HEADACHE CRANIAL CT (WITHOUT CONTRAST): 12/[address] was performed. The ventricular system is normal in appearance. There is no evidence of an intracranial mass lesion. There is no evidence of a subdural or epidural hematoma. No focal areas of decreased attenuation are seen. CONCLUSION: Normal noncontrast Cranial CT. Labs on day of discharge: Labs from last 24 hours 12/29/18 12/29/18 12/28/18 06:30 06:30 14:00 WBC 5.81 RBC 4.24 Hgb 12.7 D Hct 38.8 MCV 91.5 MCH 30.0 MCHC 32.7 RDW 14.3 Plt Count 219 MPV 11.4 H Sodium 142 Potassium 3.6 Chloride 108 H Carbon Dioxide 25.6 Anion Gap 8.4 BUN 14 Creatinine 0.65 Estimated GFR/1.73 m2 >= 60.00 Glucose 91 Calcium 8.4 L Troponin I 0.24 H* Free T3 pg/mL 12/28/18 09:32 WBC RBC Hgb Hct MCV MCH MCHC RDW Plt Count MPV Sodium Potassium Chloride Carbon Dioxide Anion Gap BUN Creatinine Estimated GFR/1.73 m2 Glucose Calcium Troponin I Free T3 pg/mL 3.6 [facility] Medical History Anxiety (Chronic) GERD (gastroesophageal reflux disease) (Chronic) Hypothyroid (Chronic) Trigeminal neuralgia (Acute) Social History Smoking/Tobacco Use Status: Never Alcohol Intake: never Drug use: Never Substance use type: does not use Do you feel safe at home: Yes Do you feel safe in your relationship?: Yes
--- NOTE | 2018-12-29 14:29 | CHAPLAIN ---
Trinity was getting ready to be discharged when I visited. She is grateful to be going home to a place where there are other people around in case a medical emergency arises. Trinity is connected to the [facility] and she planned to call the spiritism herself and ask members to pray for her.
--- NOTE | 2018-12-29 17:07 | PDOC.CMDIS ---
- If Service Date Differs Date of service: 12/29/18 Time of Service: 17:07 LACE Index Scoring Tool - Questions: Length of Stay (in days): 1 Acuity (Admit via E.D.?): Yes E.D. Visits: 1 - Answers: Total Score: 5 Risk of Readmission: Low Risk Care Management Discharge Reason for Hospitalization: Atrial fibrillation Discharge Plan: Trinity will be discharged home with no services. She will follow up with cardiology and her PCP and discharge plan of care. Trinity willl drive herself home via private vehicle. Patient/Family Education Needs: Discharge plan, limitations, follow up plan, Ask Me Three.
== END 2018-12-29 15:20 | disposition home or self-care (01) | DRG 309 ==
LOC: ER 02:11 → ICU 06:24
PROVIDERS: Internal Medicine; Admitting Provider Internal Medicine; Emergency Provider Emergency Medicine; PCP Family Medicine; Visit Provider Family Medicine
DX: I48.91 Unspecified atrial fibrillation (principal); I24.8 Other forms of acute ischemic heart disease; Z68.41 Body mass index [BMI] 40.0-44.9, adult; E66.9 Obesity, unspecified; E87.6 Hypokalemia; E03.9 Hypothyroidism, unspecified; E04.2 Nontoxic multinodular goiter; K21.9 Gastro-esophageal reflux disease without esophagitis; F41.9 Anxiety disorder, unspecified; G89.29 Other chronic pain; M25.561 Pain in right knee; G50.0 Trigeminal neuralgia
CPT/HCPCS: 36415; 71275; 80048; 80053; 85027; 93005; 96361; 96365; 96366; 96375; 96376; 99223; 99239; 99285; NC; 70450; 83735; 84439; 84443; 84481; 84484; 85025; 85610; 85730; 93010; 93225; 93306; 94762; J0153; J1160; J1200; J3490

== ENCOUNTER 2019-01-01 08:49 | Outpatient (CLI) | payer BC, SELFPAY ==
--- NOTE | 2019-01-01 11:20 | HOLTER_ITS ---
DATE OF DICTATION: January 01, 2019 STUDY INDICATION: Atrial fibrillation. REQUESTING PROVIDER: Not available. FINDINGS: The patient was monitored for 2 days. Baseline sinus rhythm. Average heart rate 74 bpm, range 56 to 153 bpm. Rare ectopy. One 5-beat ventricular run, 155 bpm. Two atrial runs, longest 3 beats, fastest 188 bpm. No pauses greater than 3 seconds. No high-degree heart block. Seven patient events. None of these events correlated with arrhythmias. FINAL INTERPRETATION: Minor ventricular and atrial arrhythmias, asymptomatic.
== END 2019-01-01 09:09 ==
PROVIDERS: PCP Family Medicine; Visit Provider Family Medicine
DX: I48.91 Unspecified atrial fibrillation (principal); I49.3 Ventricular premature depolarization; I49.1 Atrial premature depolarization
CPT/HCPCS: 93226

== ENCOUNTER 2019-01-05 15:20 | Emergency (ER) | payer BC, SELFPAY ==
[2019-01-05 15:26] VITALS: BP 147/73; PULSE 95; RESP 20; TEMP 37; O2SAT 97
[2019-01-05 16:00] VITALS: BP 100/52; PULSE 74; RESP 20; O2SAT 99
[2019-01-05 16:51] LABS: Abs Immature Grans 0.02 k/cumm (0.0-0.09); Absolute Basophil Count 0.03 k/cumm (0.0-0.2); Absolute Eosinophil Count 0.08 k/cumm (0.0-0.7); Absolute Lymphocyte Count 1.64 k/cumm (1.2-3.4); Absolute Monocyte Count 0.81 k/cumm (0.11-0.7); Absolute Neutrophil Count 7.44 k/cumm (1.2-6.7); Basophils % 0.3; Eosinophils % 0.8; HCT 40.3 % (36.0-46.0); HGB 13.5 g/dL (12.0-15.5); Immature Grans % 0.2; Lymphocytes % 16.4; Mean Corp. HGB Concentration 33.5 g/dL (32.0-36.0); Mean Corpuscular Hemoglobin 29.7 pg (27.0-33.0); Mean Corpuscular Volume 88.6 fL (80-95); Mean Platelet Volume 11.1 fL (8.0-11.0); Monocytes % 8.1; Neutrophils % 74.2; Platelet Count 249 x1000/uL (130-400); RBC 4.55 m/cumm (4.00-5.20); RBC Distribution Width 13.9 % (11.7-14.6); White Blood Cell Count 10.02 k/cumm (4.4-10.8)
--- NOTE | 2019-01-05 16:58 | ED.GENADUL_ITS ---
Discharge Plan Disposition Patient Disposition: HOME Condition: Good Discharge Details Chief Complaint: Palpitatns Clinical Impression: Heart palpitations Primary Care Provider: Dante Kramer ED Provider: Donald Wheatley Home Meds and New Rx's Prescriptions: New diltiazem HCl [Cardizem CD] 120 mg capsule,extended release 24hr 120 mg PO DAILY Qty: 30 RF: 0 Continued alprazolam [Xanax] 0.5 mg Tablet 0.5 mg PO PRN PRNRF: 0 levothyroxine [Synthroid] 50 mcg Tablet 50 mcg PO DAILY AM RF: 0 pantoprazole 40 mg Tablet,Delayed Release (Dr/Ec) 40 mg PO HS RF: 0 aspirin 81 mg Tablet,Chewable 81 mg PO DAILY Qty: 0 RF: 0 Discontinued diltiazem HCl 30 mg Tablet 30 mg PO TID RF: 0 Discharge Instructions Instructions: Palpitations (ED) Additional Instructions: Please stop taking your current diltiazem dose. Please fill the new prescription and take 120 mg daily. We are hopeful that this will likely solve your symptoms. Please continue with your close follow-up with your creative assistant to set up by her primary care provider. Please continue to avoid any caffeine, the keto diet, or stimulants. If you notice any worsening of your symptoms, or any new symptoms such as vomiting, diarrhea, fever, chills, shortness of breath, chest pain, numbness, weakness, or fainting , please return immediately to the emergency department for reevaluation. Please follow up with your primary care provider as soon as possible for reassessment and reevaluation. As always, it was a pleasure participating in your medical care today. Referrals: Dante Kramer [Primary Care Provider] - Discharge Data Discharge Date/Time-TO BE ENTERED AT DEPARTURE: 01/05/19 19:10 Medical Decision Making This is a pleasant 53-year-old female who presents today for evaluation of palpitations in conjunction with fatigue. The patient was recently admitted with new onset A. fib with RVR which quickly converted to sinus rhythm with administration of Cardizem. She was discharged on 60 mg of Cardizem 3 times daily. She experienced notable fatigue and mild hypotension with this at home, 36 hours I did have her decrease her dose to 60 mg twice daily and she tolerated this very well. When she followed up with her primary care provider her dose was transitioned to 30 mg 3 times daily. Unfortunately with this she began to again experience palpitations in conjunction with some mild fatigue. He denies any red flag pain shortness of breath numbness tingling or weakness. Currently her physical exam is notably benign, vital signs are normal. She shows no evidence of tachycardia now, however when we do get her up and ambulate her around the department multiple times she does show evidence of brief sinus tachycardia going up into the 120s to 130s. There is no evidence of A. fib with RVR during these episodes of. We will reevaluate for significant cardiac or electrolyte abnormalities and reassess. Labs benign, troponin normal, EKG changes nonspecific, potassium slightly low and she was given 40 mEq of oral potassium. I did contact [facility] cardiology and discussed the case with Dr. Lo who recommended switching to Cardizem to 120 CD. I did also discuss the nonspecific EKG abnormalities, which she feels is clinically insignificant and if the troponin is normal does not require any further evaluation. Currently the patient feels very comfortable, we will write a new prescription for Cardizem 120 mg. She does have follow-up scheduled with Dr. Schneider of [place], I will contact his office and leave a message requesting potentially closer follow-up. We discussed red flags for which to return. I have extensively reviewed the treatment plan and discharge instructions with the patient and their family. I have addressed all patient concerns at this time. The patient and family was made aware of what symptoms to monitor for that would warrant a return to the emergency department. Discussed the plan with the patient and family, they demonstrate verbal understanding and agreement with our assessment and plan at this time. EKG 15: 39 Rate 94, PA 112, QTc 435, QRS 98, sinus rhythm, PA interval slightly shortened, no evidence of delta wave, no significant ST elevation or depression, atypical nonspecific ST abnormalities in the lateral leads, less than [address] elevation in V1. Review of EKG from 12/28/2018 demonstrates slight changes from prior. HPI General Date/Time Provider Initiated Documentation: 01/05/19 15:41 . HPI Narrative: This is a 53-year-old female with a past medical history of anxiety, hypothyroidism, GERD, who was recently admitted with symptoms of new onset A. fib, at that time she was in A. fib with RVR, quickly converted to normal sinus rhythm on Cardizem. She has a chads BASC 2 score of one-point, was started on a daily aspirin, she was discharged with diltiazem, 60 mg 3 times daily. While she was at home she noticed that her blood pressure was particularly low in the low 100s to high 90s. She also felt very fatigued. She did contact the ED at that time, I spoke with her personally and we recommended holding off on a dose of Cardizem and going to a 60 mg twice daily dosing. She stated that she felt great at that dose and she stayed there for 36 hours. She followed up with her PCP earlier this week and they switched her to 30 mg 3 times daily. Since then she has been noticing a return of her fatigue, but in addition to that she is noticing breakthrough palpitations with a rate in the 130s to 140s when she does any significant type of activity. Aside for that she denies any significant chest pain, shortness of breath, numbness tingling or weakness. She denies any episodes of syncope. Of note on her last admission she had a relatively benign echocardiogram which showed mild increased pulmonary hypertension, CT angios was negative for pulmonary embolism at that time. Patient states that she is also been avoiding all caffeine, she has stopped the keto diet and is just eating healthy fruits vegetables and lean meats. She denies any other complaints at this time. Related Data Home Medications Medication Instructions Recorded Confirmed alprazolam [Xanax] 0.5 mg PO PRN PRN 12/28/18 01/05/19 levothyroxine [Synthroid] 50 mcg PO DAILY AM 12/28/18 01/05/19 pantoprazole 40 mg PO HS 12/28/18 01/05/19 aspirin 81 mg PO DAILY #0 tab 12/29/18 01/05/19 diltiazem HCl [Cardizem CD] 120 mg PO DAILY #30 cap 01/05/19 Previous Rx's Medication Instructions Recorded aspirin 81 mg PO DAILY #0 tab 12/29/18 diltiazem HCl [Cardizem CD] 120 mg PO DAILY #30 cap 01/05/19 Allergies Allergy/AdvReac Type Severity Reaction Status Date / Time ciprofloxacin [From Cipro] Allergy Unverified 01/05/19 15:29 clindamycin Allergy Unverified 01/05/19 15:29 Sulfa (Sulfonamide Allergy Unverified 01/05/19 15:29 Antibiotics) iodine AdvReac Unverified 01/05/19 15:29 General Stated Complaint: Palpitatns GALO: 2 Review of Systems Review of Systems ROS Unobtainable: All systems reviewed & are unremarkable except as noted in HPI and below PFSH Social History Smoking/Tobacco Use Status: Never Alcohol Intake: never Drug use: Never Substance use type: does not use Do you feel safe at home: Yes Do you feel safe in your relationship?: Yes Exam Narrative Exam Narrative: 1.Const: Well-nourished, Well-developed, appearing stated age 2.Eyes: PERRL, no conjunctival injection, and symmetrical lids. 3.ENT: Atraumatic external nose and ears. Moist MM. Neck: Symmetric, trachea midline, No thyromegaly. 4.CVS: +S1/S2, No murmurs or gallops. Peripheral pulses 2+ and equal in all extremities. Brisk capillary refill in all extremities. 5.RESP: Unlabored respiratory effort. Clear to auscultation bilaterally. No wheezes rales or rhonchi 6.GI: Soft, Nontender/Nondistended, No hepatosplenomegaly. No guarding or rebo und. 7.MSK: Normocephalic/Atraumatic, Extremities w/o deformity or ttp No cyanosis or clubbing, Normal movement of all extremities 8.Skin: Warm, Dry. No rashes or lesions. 9.Neuro: hand i thermal cutter II-XII grossly intact. Sensation grossly intact, no focal neurologic deficits. 10.Psych: (AAO) x3. Appropriate mood and affect Course Vital Signs Vital signs: Vital Signs Temperature 37.0 C 01/05/19 15:26 Pulse 95 H 01/05/19 15:26 Respiratory Rate 01/05/19 15:26 Blood Pressure 147/73 H 01/05/19 15:26 Pulse Oximetry 97 01/05/19 15:26 Temperature 37.0 C 01/05/19 15:26 Temperature Source Temporal Artery Scan 01/05/19 15:26 Pulse 95 H 01/05/19 15:26 Respiratory Rate 20 01/05/19 15:26 Respiratory Effort Non-Labored 01/05/19 15:32 Blood Pressure 147/73 H 01/05/19 15:26 Blood Pressure Position Sitting 01/05/19 15:26 Pulse Oximetry 97 01/05/19 15:26 Oxygen Delivery Method Room Air 01/05/19 15:26 Oxygen Flow Rate 0 01/05/19 15:26 Pain Level 2 01/05/19 15:26 Comment 01/05/19 15:26 Lab/Test Results Lab/Test Results: Laboratory Tests Range/Units 01/05/19 16:45 WBC (4.4-10.8) k/cumm 10.02 RBC (4.00-5.20) m/cumm 4.55 Hgb (12.0-15.5) g/dL 13.5 Hct (36.0-46.0) % 40.3 MCV (80-95) fL 88.6 MCH (27.0-33.0) pg 29.7 MCHC (32.0-36.0) g/dL 33.5 RDW (11.7-14.6) % 13.9 Plt Count (130-400) x1000/uL 249 MPV (8.0-11.0) fL 11.1 H Immature Gran % 0.2 Neutrophils % 74.2 Lymphocytes % 16.4 Monocytes % 8.1 Eosinophils % 0.8 Basophils % 0.3 Absolute Neutrophils (1.2-6.7) k/cumm 7.44 H Absolute Lymphocytes (1.2-3.4) k/cumm 1.64 Absolute Monocytes (0.11-0.7) k/cumm 0.81 H Absolute Eosinophils (0.0-0.7) k/cumm 0.08 Absolute Basophils (0.0-0.2) k/cumm 0.03
--- NOTE | 2019-01-05 16:58 | NUR.NOTE ---
Nursing Note: Pt ambulated around dept with portable tele monitor. HR 98 at start, pt max HR 140, sinus tach. Reported awareness in chest and SOB/light headed. No ectopy noted, remained in sinus tach. Provider notified and rhythm strips reviewed w/.
[2019-01-05 17:05] LABS: INR 1.1 (0.9-1.1); PTT Activated 25.8 sec (21.0-31.4); Prothrombin Time 10.9 sec (9.3-11.0)
[2019-01-05 17:07] LABS: ALT 29 U/L (14-59); AST 17 U/L (15-37); Albumin 3.3 g/dL (3.4-5.0); Alkaline Phosphatase 62 U/L (46-116); Anion Gap 10.2 mmol/L (3-11); BUN 13 mg/dL (7-18); Bilirubin, Total 0.5 mg/dL (0.2-1.0); CO2 23.8 mmol/L (21.0-32.0); CREATININE 0.77 mg/dL (0.55-1.02); Calcium 8.8 mg/dL (8.5-10.1); Chloride 104 mmol/L (98-107); Glucose 101 mg/dL (70-100); Magnesium 1.8 mg/dL (1.8-2.4); PHOSPHORUS 3.4 mg/dL (2.6-4.7); Potassium 3.3 mmol/L (3.5-5.1); Sodium 138 mmol/L (136-145); Total Protein 7.1 g/dL (6.4-8.2)
[2019-01-05 17:08] LABS: Troponin I < 0.05 ng/mL (0.00-0.06)
[2019-01-05] MEDS: Potassium Chloride 20 MEQ TABCR 40 MEQ PO (18:08)
[2019-01-05 18:44] VITALS: BP 115/61; PULSE 78; RESP 18; TEMP 36.6; O2SAT 99
[2019-01-05 18:48] VITALS: BP 115/61; PULSE 74; RESP 17; TEMP 36.8; O2SAT 98
[2019-01-05 19:15] VITALS: BP 115/67; PULSE 76; RESP 18; TEMP 37; O2SAT 99
== END 2019-01-05 19:10 | disposition home or self-care (01) ==
PROVIDERS: Emergency Provider Student in an Organized Health Care Education/Training Program; PCP Family Medicine
DX: R00.2 Palpitations (principal)
CPT/HCPCS: 36415; 80053; 93005; 99284; 83735; 84100; 84484; 85025; 85610; 85730; 93010

== ENCOUNTER 2019-01-12 21:27 | Emergency (ER) | payer BC, SELFPAY ==
[2019-01-12] VITALS (27 sets, daily range): BP systolic 101–133; BP diastolic 40–106; PULSE 70–106; RESP 11–26; TEMP 36.7; O2SAT 92–100
--- NOTE | 2019-01-12 21:51 | ED.GENADUL_ITS ---
Discharge Plan Disposition Patient Disposition: HOME Condition: Good Discharge Details Chief Complaint: Chest Pain Clinical Impression: Heart palpitations Primary Care Provider: Dante Kramer ED Provider: Donald Wheatley Home Meds and New Rx's Prescriptions: No Action alprazolam [Xanax] 0.5 mg Tablet 0.5 mg PO PRN PRNRF: 0 levothyroxine [Synthroid] 50 mcg Tablet 50 mcg PO DAILY AM RF: 0 pantoprazole 40 mg Tablet,Delayed Release (Dr/Ec) 40 mg PO HS RF: 0 aspirin 81 mg Tablet,Chewable 81 mg PO DAILY Qty: 0 RF: 0 diltiazem HCl [Cardizem CD] 120 mg capsule,extended release 24hr 120 mg PO DAILY Qty: 30 RF: 0 Discharge Instructions Instructions: Palpitations (ED) Additional Instructions: Please come tomorrow morning between 7 AM and 1 PM to have your Holter monitor placed. Please continue to take your home medications. If at any point you feel that your symptoms are concerning or worsening you can always come back for the admission that we discussed. If you notice any worsening of your symptoms, or any new symptoms such as vomiting, diarrhea, fever, chills, shortness of breath, chest pain, numbness, weakness, or fainting , please return immediately to the emergency department for reevaluation. Please follow up with your primary care provider as soon as possible for reassessment and reevaluation. As always, it was a pleasure participating in your medical care today. Referrals: Dante Kramer [Primary Care Provider] - Medical Decision Making This is a 53-year-old female with a past medical history of anxiety, h ypothyroidism, GERD, who was recently admitted with symptoms of new onset A. fib, at that time she was in A. fib with RVR, quickly converted to normal sinus rhythm on Cardizem. She has a chads VASC 2 score of one-point, was started on a daily aspirin, she was discharged with diltiazem, 60 mg 3 times daily. She had a negative CT angiogram at that time. While she was at home she noticed that her blood pressure was particularly low in the low 100s to high 90s. She also felt very fatigued. She did contact the ED at that time, I spoke with her personally and we recommended holding off on a dose of Cardizem and going to a 60 mg twice daily dosing. She stated that she felt great at that dose and she stayed there for 36 hours. She followed up with her PCP earlier last week and they switched her to 30 mg 3 times daily. With this transition she continued to have overriding palpitations and tachycardia with activity, as well as symptoms of continued fatigue. She came back to the ER was reassessed, laboratory work- up at that time was benign, [facility] cardiology was consulted and she was switched to Cardizem 120 extended delay daily per their recommendations. She was discharged home with this. Over the past week she has had continued symptomatology. She has had fatigue, notable palpitations with any significant exertion. She states that she is asymptomatic when she is sitting around and doing nothing though. She denies any severe chest pain, tearing sensation. Physical exam demonstrates no abnormalities. Here in the ED she remains in sinus rhythm, demonstrates no evidence of A. fib. Heart rate does appear to be elevated when she walks and ambulates around, going up to the 110s 120s however when she is sitting she is stable in the 80s. There was only a single episode of this tachycardia and this occurred when she walked in. CT angios was negative on her last visit, the remainder of her work-ups have otherwise been benign. Currently she is relatively asymptomatic. Patient states that she is notably hesitant about being admitted, and feels like she should may be just go home at this point and follow-up with her java android developer. Through shared decision making process the patient has agreed to allow for blood, EKG, cardiac evaluation now. Signs and symptoms appear inconsistent with PE especially with her recent CT angiogram that was negative for PE. Will hold off in any additional imaging. Pending laboratory and cardiac work-up will reassess and formulate disposition plan with the patient. 12:02 AM Laboratory work-up has returned, troponin normal, EKG unchanged, magnesium, phosphorus, calcium, potassium all within normal limits. TSH normal. She has remained in a normal sinus rhythm at all times during her stay, with no evidence of significant tachycardia. I discussed my recommendations for admission for the patient with cardiology consultation and continued observation. However at this time the patient states that she would like to go home. We discussed the risks and benefits of this, including and lifelong disability and the patient understands this clearly. She states that she feels comfortable going home, and would like to hold off on any inpatient admission at this time. Although this is not ideal, I do feel that it is reasonable as she is stable, with a benign work-up. However since she will not be staying we will place her on a Holter monitor at home for further assessment. Few episodes where she is tachycardic here it appears to be sinus, and not A. fib with RVR. We will schedule for Holter to be placed tomorrow morning, with continued post close follow-up with her java android developer and PCP. I have extensively reviewed the treatment plan and discharge instructions with the patient. I have addressed all patient concerns at this time. The patient was made aware of what symptoms to monitor for that would warrant a return to the emergency department. Discussed the plan with the patient, they demonstrate verbal understanding and agreement with our assessment and plan at this time. EKG 21: 36 Rate 80, IN 108, QTc 427, QRS 102, shortened IN, consistent with prior EKGs, less than [address] elevation in V1, no other significant ST elevations or depressions. There is an inverted T wave in lead III. No broad terminal S waves, no significant Q waves. EKG is unchanged from prior EKG on . There was some slight depression before, which [facility] cardiology on their review felt to be nonspecific. This is somewhat resolved on current EKG. HPI General Date/Time Provider Initiated Documentation: 01/12/19 21:30 . HPI Narrative: This is a 53-year-old female with a past medical history of anxiety, hypothyroidism, GERD, who was recently admitted with symptoms of new onset A. fib, at that time she was in A. fib with RVR, quickly converted to normal sinus rhythm on Cardizem. She has a chads VASC 2 score of one-point, was started on a daily aspirin, she was discharged with diltiazem, 60 mg 3 times daily. She had a negative CT angiogram at that time. While she was at home she noticed that her blood pressure was particularly low in the low 100s to high 90s. She also felt very fatigued. She did contact the ED at that time, I spoke with her personally and we recommended holding off on a dose of Cardizem and going to a 60 mg twice daily dosing. She stated that she felt great at that dose and she stayed there for 36 hours. She followed up with her PCP earlier last week and they switched her to 30 mg 3 times daily. With this transition she continued to have overriding palpitations and tachycardia with activity, as well as symptoms of continued fatigue. She came back to the ER was reassessed, laboratory work- up at that time was benign, [facility] cardiology was consulted and she was switched to Cardizem 120 extended delay daily per their recommendations. She was discharged home with this. Over the past week she has had continued symptomatology. She has had fatigue, notable palpitations with any significant exertion. She states that she is asymptomatic when she is sitting around and doing nothing though. She denies any severe chest pain, tearing sensation. She does feel short of breath during these episodes of palpitations though. She denies any leg swelling, pleuritic chest pain, or other complaints. Her follow- up with her java android developer is scheduled for 3 to 4 weeks from now. Patient denies any other complaints at this time. She denies any other modifying factors and states that she has been taking the medication as directed. Related Data Home Medications Medication Instructions Recorded Confirmed alprazolam [Xanax] 0.5 mg PO PRN PRN 12/28/18 01/05/19 levothyroxine [Synthroid] 50 mcg PO DAILY AM 12/28/18 01/05/19 pantoprazole 40 mg PO HS 12/28/18 01/05/19 aspirin 81 mg PO DAILY #0 tab 12/29/18 01/05/19 diltiazem HCl [Cardizem CD] 120 mg PO DAILY #30 cap 01/05/19 Previous Rx's Medication Instructions Recorded aspirin 81 mg PO DAILY #0 tab 12/29/18 diltiazem HCl [Cardizem CD] 120 mg PO DAILY #30 cap 01/05/19 Allergies Allergy/AdvReac Type Severity Reaction Status Date / Time ciprofloxacin [From Cipro] Allergy Unverified 01/05/19 15:29 clindamycin Allergy Unverified 01/05/19 15:29 Sulfa (Sulfonamide Allergy Unverified 01/05/19 15:29 Antibiotics) iodine AdvReac Unverified 01/05/19 15:29 General Stated Complaint: Chest Pain GALO: 2 Review of Systems Review of Systems ROS Unobtainable: All systems reviewed & are unremarkable except as noted in HPI and below PFSH Social History Smoking/Tobacco Use Status: Never Alcohol Intake: never Drug use: Never Substance use type: does not use Do you feel safe at home: Yes Do you feel safe in your relationship?: Yes Exam Narrative Exam Narrative: 1.Const: Well-nourished, Well-developed, appearing stated age 2.Eyes: PERRL, no conjunctival injection, and symmetrical lids. 3.ENT: Atraumatic external nose and ears. Moist MM. Neck: Symmetric, trachea midline, No thyromegaly. 4.CVS: +S1/S2, No murmurs or gallops. Peripheral pulses 2+ and equal in all extremities. Brisk capillary refill in all extremities. 5.RESP: Unlabored respiratory effort. Clear to auscultation bilaterally. No wheezes rales or rhonchi 6.GI: Soft, Nontender/Nondistended, No hepatosplenomegaly. No guarding or rebound. 7.MSK: Normocephalic/Atraumatic, Extremities w/o deformity or ttp No cyanosis or clubbing, Normal movement of all extremities 8.Skin: Warm, Dry. No rashes or lesions. 9.Neuro: chef french II-XII grossly intact. Sensation grossly intact, no focal neurologic deficits. 10.Psych: (AAO) x3. Appropriate mood and affect Course Vital Signs Vital signs: Vital Signs Temperature 36.7 C 01/12/19 21:31 Pulse 106 H 01/12/19 21:31 Respiratory Rate 18 01/12/19 21:31 Blood Pressure 133/78 01/12/19 21:31 Pulse Oximetry 98 01/12/19 21:31 Temperature 36.7 C 01/12/19 21:31 Temperature Source Tympanic 01/12/19 21:31 Pulse 106 H 01/12/19 21:31 Respiratory Rate 18 01/12/19 21:31 Blood Pressure 133/78 01/12/19 21:31 Pulse Oximetry 98 01/12/19 21:31 Oxygen Delivery Method Room Air 01/12/19 21:31 Oxygen Flow Rate 0 01/12/19 21:31 Comment 01/12/19 21:31
[2019-01-12 22:20] LABS: Abs Immature Grans 0.01 k/cumm (0.0-0.09); Absolute Basophil Count 0.03 k/cumm (0.0-0.2); Absolute Eosinophil Count 0.12 k/cumm (0.0-0.7); Absolute Lymphocyte Count 2.08 k/cumm (1.2-3.4); Absolute Monocyte Count 0.74 k/cumm (0.11-0.7); Absolute Neutrophil Count 5.69 k/cumm (1.2-6.7); Basophils % 0.3; Eosinophils % 1.4; HCT 43.3 % (36.0-46.0); HGB 14.3 g/dL (12.0-15.5); Immature Grans % 0.1; Mean Corpuscular Hemoglobin 29.5 pg (27.0-33.0); Mean Corpuscular Volume 89.3 fL (80-95); Mean Platelet Volume 11.6 fL (8.0-11.0); Monocytes % 8.5; Neutrophils % 65.7; Platelet Count 245 x1000/uL (130-400); RBC 4.85 m/cumm (4.00-5.20); RBC Distribution Width 14.2 % (11.7-14.6); White Blood Cell Count 8.67 k/cumm (4.4-10.8)
[2019-01-12 22:50] LABS: ALT 24 U/L (14-59); AST 14 U/L (15-37); Albumin 3.3 g/dL (3.4-5.0); Alkaline Phosphatase 70 U/L (46-116); Anion Gap 9.7 mmol/L (3-11); BUN 16 mg/dL (7-18); Bilirubin, Total 0.4 mg/dL (0.2-1.0); CO2 25.3 mmol/L (21.0-32.0); Calcium 9.2 mg/dL (8.5-10.1); Chloride 106 mmol/L (98-107); Glucose 89 mg/dL (70-100); Potassium 3.7 mmol/L (3.5-5.1); Sodium 141 mmol/L (136-145); Total Protein 7.3 g/dL (6.4-8.2)
[2019-01-12 22:56] LABS: Magnesium 2.1 mg/dL (1.8-2.4); PHOSPHORUS 3.6 mg/dL (2.6-4.7)
[2019-01-12 23:01] LABS: Troponin I < 0.05 ng/mL (0.00-0.06)
[2019-01-12 23:03] LABS: TSH (W/Ref FT4) 0.56 uIU/mL (0.36-3.74)
[2019-01-13] VITALS: PULSE 75; RESP 23; O2SAT 96
[2019-01-13 00:01] VITALS: BP 106/65; PULSE 71; PULSE 76; RESP 16; O2SAT 98
[2019-01-13 00:12] VITALS: BP 106/65; PULSE 71; RESP 16; O2SAT 98
== END 2019-01-13 00:27 | disposition home or self-care (01) ==
PROVIDERS: Emergency Provider Student in an Organized Health Care Education/Training Program; PCP Family Medicine
DX: R00.2 Palpitations (principal); I48.91 Unspecified atrial fibrillation; F41.9 Anxiety disorder, unspecified
CPT/HCPCS: 36415; 80053; 93005; 99284; 83735; 84100; 84443; 84484; 85025; 93010

== ENCOUNTER 2019-01-13 11:56 | Outpatient (CLI) | payer BC, SELFPAY ==
--- NOTE | 2019-01-16 08:38 | W.HOLTRPT ---
Holter Monitor Report Holter Monitor Note: This is a 48-hour Holter monitor ordered for Atrial Fibrillation. The patient is currently being treated with diltiazem. 205,065 beats were recorded over this 48-hour period. Greater than 99% were sinus rhythm, with an average heart rate of 71 bpm (55-135 bpm) There were occasional (<1%) isolated and paired atrial complexes, and 3 runs of supraventricular tachycardia (the longest of which was 3 beats; 195 bpm) There were a total of 39 PACs throughout the 48-hour period. There were no ventricular premature complexes. Patient's diary events correlated with sinus rhythm, sinus tachycardia and occasional PACs. There were no recordings of atrial fibrillation.
== END 2019-01-13 12:16 ==
PROVIDERS: PCP Family Medicine; Visit Provider Student in an Organized Health Care Education/Training Program
DX: I48.91 Unspecified atrial fibrillation (principal); I47.1 Supraventricular tachycardia; I49.1 Atrial premature depolarization
CPT/HCPCS: 93225

== ENCOUNTER 2019-01-16 07:11 | Outpatient (CLI) | payer BC, SELFPAY | END 2019-01-16 07:31 | PROVIDERS: PCP Family Medicine; Visit Provider Family Medicine | DX: I48.91 Unspecified atrial fibrillation (principal); I47.1 Supraventricular tachycardia; I49.1 Atrial premature depolarization | CPT/HCPCS: 93226 ==

== ENCOUNTER 2019-01-16 09:48 | Outpatient (CLI) | payer BC, SELFPAY ==
[2019-01-16 10:51] LABS: FREE T4 1.39 ng/dL (0.76-1.46)
[2019-01-16 10:54] LABS: Anion Gap 6.5 mmol/L (3-11); BUN 15 mg/dL (7-18); CO2 26.5 mmol/L (21.0-32.0); CREATININE 0.73 mg/dL (0.55-1.02); Calcium 8.8 mg/dL (8.5-10.1); Chloride 107 mmol/L (98-107); Glucose 93 mg/dL (70-100); NT-proBNP 167 pg/mL; Potassium 4.2 mmol/L (3.5-5.1); Sodium 140 mmol/L (136-145); TSH 0.62 uIU/mL (0.36-3.74)
[2019-01-16 22:25] LABS: T3,Free 3.6 pg/ml (2.8-5.3)
[2019-01-16 22:41] LABS: T3, Total 128 ng/dl (97-169)
[2019-01-17 10:18] LABS: Thyroglobulin Antibody <15 U/mL (<61)
== END 2019-01-16 10:08 ==
PROVIDERS: Internal Medicine Endocrinology, Diabetes & Metabolism; PCP Family Medicine; Visit Provider Nurse Practitioner
DX: I48.0 Paroxysmal atrial fibrillation (principal); E04.2 Nontoxic multinodular goiter
CPT/HCPCS: 36415; 80048; 83880; 84439; 84443; 84480; 84481; 86800

== ENCOUNTER 2019-01-30 09:29 | Outpatient (CLI) | payer BC, SELFPAY ==
[2019-01-30 12:13] LABS: ALT 21 U/L (14-59); AST 16 U/L (15-37); Albumin 3.2 g/dL (3.4-5.0); Alkaline Phosphatase 70 U/L (46-116); Anion Gap 9.5 mmol/L (3-11); BUN 7 mg/dL (7-18); Bilirubin, Total 0.6 mg/dL (0.2-1.0); C-Reactive Protein 1.15 mg/dL (0.0-0.3); CO2 26.5 mmol/L (21.0-32.0); CREATININE 0.65 mg/dL (0.55-1.02); Calcium 8.6 mg/dL (8.5-10.1); Chloride 105 mmol/L (98-107); Glucose 93 mg/dL (70-100); Potassium 3.9 mmol/L (3.5-5.1); Sodium 141 mmol/L (136-145); Total Protein 6.6 g/dL (6.4-8.2)
[2019-01-31 09:59] LABS: Homocysteine 8.2 umol/L (4.5-12.4)
== END 2019-01-30 09:49 ==
PROVIDERS: PCP Family Medicine; Visit Provider Family Medicine
DX: E87.6 Hypokalemia (principal); E78.5 Hyperlipidemia, unspecified; I48.91 Unspecified atrial fibrillation
CPT/HCPCS: 36415; 80053; 83090; 84439; 84443; 84480; 84481; 86140

== ENCOUNTER 2019-02-20 08:34 | Outpatient (CLI) | payer BC, SELFPAY | END 2019-02-20 08:54 | PROVIDERS: PCP Family Medicine; Visit Provider Internal Medicine Cardiovascular Disease | DX: I48.0 Paroxysmal atrial fibrillation (principal); R00.0 Tachycardia, unspecified; E04.2 Nontoxic multinodular goiter | CPT/HCPCS: 93005; 93010 ==

== ENCOUNTER 2021-01-22 03:16 | Outpatient (CLI) | payer BC, SELFPAY ==
[2021-01-22 17:45] LABS: Lipase 142 U/L (73-393)
== END 2021-01-22 03:17 | disposition home or self-care (01) ==
LOC: LBO 03:16
PROVIDERS: PCP Family Medicine; Visit Provider Internal Medicine
DX: K21.9 Gastro-esophageal reflux disease without esophagitis (principal); K22.70 Barrett's esophagus without dysplasia
CPT/HCPCS: 36415; 83690

== ENCOUNTER 2021-11-27 17:45 | Outpatient (REF) | payer BC, SELFPAY | END 2021-11-27 17:46 | disposition home or self-care (01) | LOC: NCHCN 17:45 | PROVIDERS: PCP Family Medicine; Visit Provider Nurse Practitioner Family | DX: I10 Essential (primary) hypertension (principal); M25.512 Pain in left shoulder | CPT/HCPCS: 80048; 80061; 84443 ==